=== PATIENT | male | born 1940 | race Caucasian/White ===

== ENCOUNTER 2016-07-24 10:59 | Outpatient (CLI) | payer MEDICARE, OTHER ==
[2015-01-14 18:18] VITALS: BP 156/73
[2016-07-24 11:50] LABS: eGFR (African) > 60; eGFR (Non-African) > 60
== END 2016-07-24 11:00 ==
LOC: LAB 10:59
PROVIDERS: ATTEND Family Medicine
DX: E11.9 Type 2 diabetes mellitus without complications (principal); Z51.81 Encounter for therapeutic drug level monitoring; E78.5 Hyperlipidemia, unspecified
CPT/HCPCS: 36415; 80053; 80061; 83036

== ENCOUNTER 2017-04-14 14:49 | Emergency (ER) | payer MEDICARE, OTHER ==
[2017-04-14] MEDS: IPRATROPIUM/ALBUTEROL SULFATE 3 ML AMPUL.NEB NEB STA (15:05)
--- NOTE | 2017-04-14 15:17 | ED Physician Documentation ---
Wheezing - HISTORIAN Historian: patient, spouse - HPI Chief Complaint: Wheezing Onset: days ago ([place] - progressively worse) Duration: continues in ED, worse Initiating Event: upper respiratory illness Associated Symptoms:: fever, trouble breathing, shortness of breath, chest pain (2 days ago, relieved by nitro) Further Comments: yes (77 year old male patient presents with SOB and wheezing. Patient states his symptoms started [place] and have become progressively worse. Patient reports taking nitro for chest pain 2 days ago. Patient states chest pain went away after nitro. Denies any further CP. Reports exposure to influenza. Denies N/V/D.) - ROS CONST: recent illness (since ) EYES/ENT: denies: eye redness, eye itching, sore throat, runny nose, other CVS: denies: heart racing, palpitations, other GI/: none MS/SKIN/LYMPH: denies: ankle swelling, leg pain, rash, swollen glands, leg swelling, calf pain, other NEURO/PSYCH: denies: headache, dizziness, light-headedness, anxiety, tingling hands, muscle spasms hands, tingling face, muscle spasms face, other - PAST HX Asthma: other (patient cannot recall) Lung Disease: asthma, COPD (chronic bronchitis) Other History: diabetes Type 2, hypertension, other (BPH, ) Surgeries/Procedures: other (cardiac cath, tonsilectomy) Allergies/Adverse Reactions: Allergies Allergy/AdvReac Type Severity Reaction Status Date / Time No Known Allergies Allergy Unverified 09/16/13 09:52 - SOCIAL HX Smoking History: cigarettes (1.5ppd) - FAMILY HX Family History: denies: emphysema - VITAL SIGNS Vital Signs: Vital Signs Temp Pulse Resp BP Pulse Ox 156/73 01/15/15 00:47 - REVIEWED ASSESSMENTS Nursing Assessment Reviewed: Yes Vitals Reviewed: Yes Wheezing Physical Exam - EXAM General Appearance: severe distress EENT: eye inspection normal, no signs of dehydration, FILOMENA, pharyngeal erythema Respiratory: respiratory distress (RR 30-32, RA sat 86%), accessory muscle use, decreased air movement (bases), wheezes (inspiratory and expiratory wheezing) CVS: reg rate & rhythm, heart sounds normal, equal pulses, no murmur, no gallop , PMI nml, no JVD, no friction rub, 24 Abdomen: non-tender, no organomegaly, nml bowel sounds, no distention Skin: no rash, pallor, warm, nml palp., dry Extremities: non-tender, normal range of motion, no evidence of injury, no edema , J, 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 O2 down to 5L NC, sat 95-97%; continues to have expiratory wheeze, RR improved 24-26 BPM. 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 Patient prefers transfer to [place]. 1620 Call to [place], patient accepted by Dr Rust to step down. Patient agrees with transfer. 1700 VS remain stable at transfer, O2 remains at 5L. - EKG/XRAY/CT EKG: rhythm (SR, rate 80, occassional PVC) ED Results Lab/Radiology - Orders Orders: ED Orders Category Date Time Status Continuous EKG monitoring Q30M Care 04/14/17 15:04 Active Continuous Pulse Oximetry Q30M Care 04/14/17 15:[address] IV Lock 1T Care 04/14/17 15:04 Active CHEST 1 VIEW [RAD] Stat Exams 04/14/17 15:07 Ordered BLOOD CULTURE Stat Lab 04/14/17 Ordered CBC/PLATELET/DIFF Stat Lab 04/14/17 15:04 Received CMP Stat Lab 04/14/17 15:05 Received INFLUENZA A&B Stat Lab 04/14/17 15:04 Uncollected LACTATE Stat Lab 04/14/17 15:05 Received TROPONIN I (cTnI) Stat Lab 04/14/17 15:10 Ordered UA W/MICRO IF INDICATED Stat Lab 04/14/17 15:04 Ordered 0.9 % Sodium Chloride [Normal Saline] 1,000 ml Med 04/14/17 15:04 Discontinued IV NOW Albuterol Sulfate [Ventolin] Med 04/14/17 15:12 Discontinued 2.5 mg NEB NOW ONE Budesonide [Pulmicort] Med 04/14/17 16:00 Ordered 0.5 mg NEB BID Ipratropium/Albuterol Sulfate [Duoneb] Med 04/14/17 15:04 Discontinued 3 ml NEB STAT STA methylPREDNISolone SOD SUCC [Solu-MEDROL] Med 04/14/17 15:09 Discontinued 125 mg IVP NOW ONE Oxygen Daily Oxygen 04/14/17 15:15 Ordered Discharge Clincal Impression: COPD exacerbation, Hypoxemia requiring supplemental oxygen, Respiratory distress, Wheezing Referrals: Angus De La Cruz MD [Primary Care Provider] - 2 Days Condition: Serious Disposition: XFER SHT-TRM HOSP Decision to Admit: [id number] Decision Time: 16:32
[2017-04-14 15:24] LABS: MEAN CORPUSCULAR HEMOGLOBIN 30.4 pg (28.0-34.0); MEAN CORPUSCULAR VOLUME 92.7 fl (80.0-100.0)
[2017-04-14 15:29] LABS: eGFR (African) > 60; eGFR (Non-African) > 60
[2017-04-14] MEDS: methylPREDNISolone SOD SUCC 125 MG/2 ML VIAL IVP ONE (15:35)
[2017-04-14] MEDS ORDERED: BUDESONIDE 0.5MG/2ML AMPUL.NEB NEB ONE (15:37)
[2017-04-14] MEDS: ALBUTEROL SULFATE 2.5 MG/3 ML AMPUL.NEB NEB ONE ×2 (15:45→18:24)
[2017-04-14 15:47] LABS: SEGMENTED NEUTROPHILS % 81 % (39-79)
[2017-04-14 15:48] LABS: MONOCYTES % 5 % (0-11)
[2017-04-14] MEDS: 0.9 % SODIUM CHLORIDE 1,000 ML IV ONE (15:52)
--- NOTE | 2017-04-14 15:52 | Diagnostic Imaging Report ---
[facility] [address] [facility].[address] [address] Report Submission Date: Apr 14, 2017 3:35:13 PM CHAIN BUILDER Patient Study Name: VAZQUEZ COPE Date: Apr 14, 2017 3:14:32 PM CHAIN BUILDER Modality Type: CR Gender: M Description: CHEST : 44 Institution: [facility] Physician: MAGDALENA CONDON (SENIOR RESEARCH MANAGER) - ER Examination: Portable chest History: Shortness of breath. Comparison exam: None available for direct review. Findings: Single view of the chest demonstrates a mildly prominent cardiac and mediastinal silhouette. Chronic appearing interstitial pattern. Lung moran without focal infiltrate. No blunting of the costophrenic margins. Osseous structures are appropriate for age. Impression: Chronic interstitial changes. No acute appearing pulmonary process. Electronically signed on Apr 14, 2017 3:35:13 PM CHAIN BUILDER by: Sajan JOSHI
[2017-04-14] MEDS: BUDESONIDE 0.5MG/2ML AMPUL.NEB NEB SCH (16:00)
[2017-04-14] MEDS: LEVALBUTEROL HCL 1.25 MG/3 ML AMPUL.NEB NEB ONE (16:43)
[2017-04-14] MEDS ORDERED: LEVOFLOXACIN 500MG/D5W 100ML 100 ML IV ONE (16:47)
[2017-04-14] MEDS ORDERED: LEVOFLOXACIN 250MG/D5W 50ML 50 ML IV ONE (16:48)
[2017-04-14] MEDS: LEVOFLOXACIN 500MG/D5W 100ML 500 MG in PREMIX BAG 1 BAG IV ONE (16:54)
[2017-04-14] MEDS: LEVOFLOXACIN 250MG/D5W 50ML 250 MG in PREMIX BAG 1 BAG IV ONE (18:24)
[2017-04-15 00:33] VITALS: BP 151/76
== END 2017-04-14 18:35 | disposition short-term general hospital (02) ==
LOC: ED 14:49
DX: J44.1 Chronic obstructive pulmonary disease with (acute) exacerbation (principal); R09.02 Hypoxemia; R06.09 Other forms of dyspnea; F17.210 Nicotine dependence, cigarettes, uncomplicated; R06.2 Wheezing
CPT/HCPCS: 36415; 71010; 80053; 83605; 84484; 85025; 87040; 87400; 93005; J1956; J2930; J7030; J7614; J7626; 94640; 96361; 96365; 96376; 99284; S1016

== ENCOUNTER 2017-05-05 16:06 | Emergency (ER) | payer MEDICARE, OTHER ==
--- NOTE | 2017-05-05 17:39 | ED Physician Documentation ---
Male Genitourinary Problems - HISTORIAN Historian: patient, spouse - HPI Stated Complaint: Unable to Void Chief Complaint: Male Urogenital Problems Additional Information: unable to void cath for [id number] plus-no prev such but known BPH. sn spec prev dysuria Onset: days ago (1) Context: denies: drug use Severity: moderate - Associated Symptoms Problems Urinating: urgency w/ urination. denies: burning w/ urination Penile Pain: No Penile Swelling: No Abdominal Pain: moderate, suprapubic - Sexual History Sexual History: non-contributory - ROS CONST: none GI/: denies: nausea, vomiting MS/SKIN/LYMPH: none CVS/RESP: none. denies: shortness of breath EYES/ENT: none NEURO/PSYCH: denies: fainting, dizziness - PAST HX Past History: diabetes Type 2 (ihd copd prev mi) Surgeries/Procedures: other (hernia) Allergies/Adverse Reactions: Allergies Allergy/AdvReac Type Severity Reaction Status Date / Time No Known Allergies Allergy Unverified 09/16/13 09:52 - SOCIAL HX Smoking History: non-smoker (x3wks) Alcohol Use: none Drug Use: none - FAMILY HX Family History: none - VITAL SIGNS Vital Signs: Vital Signs Temp Pulse Resp BP Pulse Ox 98 F 70 28 H 136/75 95 05/05/17 16:10 05/05/17 16:10 05/05/17 16:10 05/05/17 16:10 05/05/17 16:10 - REVIEWED ASSESSMENTS Nursing Assessment Reviewed: Yes Vitals Reviewed: Yes ED Results Lab/Radiology - Orders Orders: ED Orders Category Date Time Status Urinary catheterization 1T Care 05/05/17 16:36 Active URINALYSIS Routine Lab 05/05/17 Ordered Male Genitourinary Problems - EXAM General Appearance: moderate distress, severe distress Abdomen: other (suprapubic). No: non-tender EENT: ENT inspection normal Neck: nml inspection Respiratory: no resp distress, chest non-tender, breath sounds normal CVS: reg rate & rhythm, heart sounds normal Back: non-tender Extremities: normal range of motion Neuro/Psych: oriented X3, motor nml, sensation nml, mood/affect nml Skin: warm/dry, normal color. No: cyanosis, diaphoresis, jaundice, mottled Discharge Clincal Impression: acute urinary retention , hx ihd diabetes Referrals: Angus De La Cruz MD [Primary Care Provider] - 2 Days Comments: relief w/ olson cath total 1200cc ret urine---to see urologists VERY soon Condition: Good Disposition: 01 HOME, SELF-CARE Decision to Admit: NO Decision Time: 17:44
[2017-05-05 17:57] VITALS: BP 120/68
[2017-05-05 20:48] LABS: APPEARANCE,URINE CLEAR (CLEAR); COLOR,URINE YELLOW (YELLOW); OCCULT BLOOD,URINE 2+ (NEGATIVE); UROBILINOGEN URINE 0.2 Eu (0.2-1.0)
== END 2017-05-05 17:55 | disposition home or self-care (01) ==
LOC: ED 16:06
DX: R33.9 Retention of urine, unspecified (principal); I25.9 Chronic ischemic heart disease, unspecified; E11.9 Type 2 diabetes mellitus without complications
CPT/HCPCS: 51702; 81002; 99283

== ENCOUNTER 2017-10-08 13:47 | Outpatient (CLI) | payer MEDICARE, OTHER ==
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
== END 2017-10-08 13:50 ==
LOC: RAD 13:47
PROVIDERS: ATTEND Family Medicine
DX: M25.561 Pain in right knee (principal)
CPT/HCPCS: 73562

== ENCOUNTER 2017-10-29 14:25 | Outpatient (CLI) | payer MEDICARE, OTHER ==
[2017-10-29 15:48] LABS: eGFR (African) > 60; eGFR (Non-African) > 60
== END 2017-10-29 14:30 ==
LOC: LAB 14:25
PROVIDERS: ATTEND Family Medicine
DX: Z51.81 Encounter for therapeutic drug level monitoring (principal); E55.9 Vitamin D deficiency, unspecified
CPT/HCPCS: 36415; 80053; 82306

== ENCOUNTER 2018-01-01 08:59 | Outpatient (CLI) | payer MEDICARE, OTHER | END 2018-01-01 09:00 | LOC: LAB 08:59 | PROVIDERS: ATTEND Family Medicine | DX: E55.9 Vitamin D deficiency, unspecified (principal) | CPT/HCPCS: 82306 ==